=== PATIENT | male | born 1955 | race Caucasian/White ===

== ENCOUNTER 2018-10-31 17:30 | Observation (INO) | payer MEDICARE, OTHER ==
[2018-10-31] MEDS ORDERED: Morphine 2 MG/ML Syringe IVPUSH PRN (18:10)
[2018-10-31 19:10] LABS: ANION GAP 14.6 mmol/L (5-15); CHLORIDE,CL 97 mmol/L (98-115); SODIUM,NA 137 mmol/L (136-145)
[2018-10-31 19:26] LABS: ANION GAP 16.8 mmol/L (5-15); CHLORIDE,CL 98 mmol/L (98-115); SODIUM,NA 138 mmol/L (136-145)
[2018-10-31] MEDS ORDERED: Diatrizoate Meglumine/Diatrizoate Sodium 37% 120 ML Bottle PO ONE (19:35)
[2018-10-31] MEDS ORDERED: Iopamidol 612 MG/ML 100 ML Bottle IVPUSH ONE (19:35)
[2018-10-31] MEDS ORDERED: Sodium Chloride 0.9% 50 ML IV SCH (19:45)
[2018-10-31] MEDS: Sodium Chloride 0.9% 1,000 ML IV SCH (20:04)
[2018-10-31] MEDS ORDERED: Carvedilol 6.25 MG Tab PO SCH (22:15)
[2018-10-31] MEDS ORDERED: Albuterol 0.083% 2.5 MG/3 ML Neb Soln INH PRN (22:15)
[2018-11-01] MEDS: Insulin Aspart 100 Units/ML 3 ML Pen SUBCUT SCH ×3 (00:08→12:12)
[2018-11-01 07:56] LABS: ANION GAP 15.4 mmol/L (5-15); CHLORIDE,CL 98 mmol/L (98-115); SODIUM,NA 140 mmol/L (136-145)
[2018-11-01] MEDS ORDERED: Carvedilol 6.25 MG Tab PO SCH (08:00)
[2018-11-01] MEDS ORDERED: Budesonide 0.5 MG/2 ML Neb Susp INH SCH (09:00)
[2018-11-01] MEDS ORDERED: Aspirin 81 MG Tab.EC PO SCH (09:00)
[2018-11-01] MEDS: Sodium Chloride 0.9% 1,000 ML IV SCH (11:39)
[2018-11-01 15:41] VITALS: BP 120/76
[2018-11-01] MEDS ORDERED: Tamsulosin 0.4 MG Cap.ER PO SCH (21:00)
--- NOTE | 2018-11-02 09:43 | PCM.DCSUM1 ---
Discharge Summary - Hospital Course Diagnosis: Stroke: No - Discharge Data Discharge Date: 11/01/18 Discharge Disposition: DC/Tfer to Acute Hospital 02 Condition: Stable - Discharge Plan *PRESCRIPTION DRUG MONITORING PROGRAM REVIEWED*: Not Applicable Home Medications: Home Meds Albuterol [Proventil Neb Soln] 2.5 mg INH Q2H PRN #60 neb 01/03/15 [Rx] Budesonide [Pulmicort] 0.5 mg INH BID #60 neb 01/03/15 [Rx] Carvedilol [Coreg] 6.25 mg PO BID #60 tablet 01/03/15 [Rx] Cholecalciferol (Vitamin D3) [Vitamin D3] 4,000 unit PO DAILY #1 bottle [Rx] Multivitamins w-Iron/Ca/FA/Min [Thera M Plus] 1 tab PO DAILY@1700 #1 bottle [Rx] Sildenafil [Revatio] 20 mg PO TID #90 tablet 01/03/15 [Rx] Tamsulosin HCl 0.4 mg PO BEDTIME #60 cap.er.24h 01/03/15 [Rx] Aspirin [Halfprin] 81 mg PO DAILY 10/31/18 [History] atorvaSTATin [Lipitor] 10 mg PO DAILY 10/31/18 [History] metFORMIN [Glucophage XR] 500 mg PO WITHBREAKFAST 11/01/18 [History] - Discharge Summary/Plan Comment DC Time >30 min.: Yes Discharge Summary/Plan Comment: Final diagnosis Pancreatitis Possible pancreatic mass Possible pancreatic CA Elevated liver enzymes Biliary tract dilatation History summary 62 year old male initially presented to the [facility] for follow-up of abnormal lab results and ultrasound results in which he had increasing elevated liver enzymes and he was complaining of moderate intermittent pain around the umbilical area somewhat worse after eating. At the time he had no fever, chills , nausea, vomiting, diarrhea, constipation. Tolerating foods and fluids. Is admitted to the hospital for further workup. He did have an abdominal ultrasound demonstrated 1. Intrahepatic and extrahepatic ductal dilation was not present on 10/16/2014. MRCP is suggested to determine if this is due to distal obstruction. 2. Possible fatty liver. 3. Gallbladder is markedly distended, but there are no other signs to suggest acute cholecystitis. 4. Hyperechoic band in IVC suggests an old, partially resolved thrombus. 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 He was kept on bowel rest however was allowed clear fluids. His pain was tolerable. He tolerated his diet. He had no fever. He never became hemodynamically unstable. No antibiotics were warranted since he had no signs and symptoms of infection normal inflammatory indices. Total bili was increasing so urgent GI consultation was placed and patient was therefore transferred to a tertiary higher level of care [facility] likely needing MRCP and subsequent endoscopic biopsy for staging. - General Info Functional Status: Reports: Pain Controlled, Tolerating Diet, Ambulating. Denies: New Symptoms - Review of Systems General: Denies: Fever Pulmonary: Reports: No Symptoms Cardiovascular: Reports: No Symptoms Gastrointestinal: Reports: Other (Moderate umbilical intermittent pain) Genitourinary: Reports: No Symptoms Neurological: Reports: No Symptoms Psychiatric: Reports: No Symptoms - Patient Data Vitals - Most Recent: Last Vital Signs Temp 96.9 F 11/01/18 15:00 Pulse 81 11/01/18 16:29 Resp 16 11/01/18 15:00 BP 120/76 11/01/18 15:00 Pulse Ox 93 L 11/01/18 15:00 Weight - Most Recent: 245 lb 9.6 oz Lab Results - Last 24 hrs: Laboratory Results - last 24 hr 11/01/18 Range/Units 11:46 POC Glucose 253 H (74-106) mg/dl Med Orders - Current: Current Medications Discontinued Medications Albuterol (Proventil Neb Soln) 2.5 mg INH Q2H PRN PRN Reason: Wheezing Aspirin (Halfprin) 81 mg PO DAILY [facility] Last Admin: 11/01/18 09:36 Dose: 81 mg Budesonide (Pulmicort) 0.5 mg INH BID [facility] Last Admin: 11/01/18 09:37 Dose: 0.5 mg Carvedilol (Coreg) 6.25 mg PO BID [facility] Last Admin: 10/31/18 23:30 Dose: Not Given Carvedilol (Coreg) 6.25 mg PO BIDMEALS [facility] Last Admin: 11/01/18 09:36 Dose: 6.25 mg Diatrizoate Meglum/Diatrizoate Sod (Gastrografin 37%) 120 ml PO ONETIME ONE Stop: 10/31/18 19:36 Last Admin: 10/31/18 20:01 Dose: 30 ml Sodium Chloride (Normal Saline) 1,000 mls @ 75 mls/hr IV ASDIRECTED [facility] Last Admin: 11/01/18 11:39 Dose: 75 mls/hr Sodium Chloride (Normal Saline) 50 mls @ 200 mls/hr IV ASDIRECTED [facility] Last Admin: 10/31/18 20:00 Dose: 200 mls/hr Insulin Aspart (Novolog) 0 unit SUBCUT WITHMEALSANDBED [facility]; Protocol Last Admin: 11/01/18 12:12 Dose: 3 units Iopamidol (Isovue-300 (61%)) 100 ml IVPUSH ONETIME ONE Stop: 10/31/18 19:36 Last Admin: 10/31/18 20:00 Dose: 100 ml Morphine Sulfate (Morphine) 2 mg IVPUSH Q2H PRN PRN Reason: Pain Tamsulosin HCl (Flomax) 0.4 mg PO BEDTIME PAWAN - Exam Quality Assessment: Denies: Supplemental Oxygen General: Reports: Alert, Oriented Neck: Reports: Supple Lungs: Reports: Clear to Auscultation, Normal Respiratory Effort Cardiovascular: Reports: Regular Rate, Regular Rhythm GI/Abdominal Exam: Normal Bowel Sounds, Soft, Tender (Moderate pain around the umbilical area) Skin: Reports: Other (No jaundice) Psy/Mental Status: Reports: Alert, Normal Affect, Normal Mood
== END 2018-11-01 17:20 ==
LOC: KA.MS 17:30
PROVIDERS: ADMIT Nurse Practitioner Family; ATTEND Family Medicine
DX: K85.90 Acute pancreatitis without necrosis or infection, unspecified (principal); K83.8 Other specified diseases of biliary tract; R94.5 Abnormal results of liver function studies; E11.9 Type 2 diabetes mellitus without complications; E66.9 Obesity, unspecified; J44.9 Chronic obstructive pulmonary disease, unspecified; Z68.39 Body mass index [BMI] 39.0-39.9, adult; Z79.82 Long term (current) use of aspirin; Z79.84 Long term (current) use of oral hypoglycemic drugs; Z79.899 Other long term (current) drug therapy; Z88.8 Allergy status to other drugs, medicaments and biological substances
CPT/HCPCS: 36415; 74177; 80048; 80053; 82962; 83735; 85025; A9270; J1815; J7030; J7050; Q9963; Q9967; 96360; 96361; G0378; G0379